=== PATIENT | female | born 1995 | race African-American/Black ===

== ENCOUNTER 2020-02-22 11:35 | Emergency (ER) | payer OTHER, SELFPAY ==
[2020-02-22 11:45] VITALS: BP 113/74; PULSE 87; RESP 16; TEMP 36.4; O2SAT 100
--- NOTE | 2020-02-22 12:00 | ED.FEMALEGU ---
HPI - Female Genitourinary General Chief complaint: Urogenital-Female Stated complaint: vaginal discharge Time Seen by Provider: 02/22/20 11:52 Source: patient and RN notes reviewed Mode of arrival: ambulatory Limitations: no limitations History of Present Illness HPI Narrative: Patient presents today complaining of vaginal discharge, internal and external itching and irritation. Irritation with urination. Describes the discharge is milky. Denies hematuria. Painful intercourse 4 to 5 days ago. Patient found out a few days ago that her boyfriend is cheating on her. MD elicited complaint: dysuria and vaginal discharge Related Data Allergies Allergy/AdvReac Type Severity Reaction Status Date / Time No Known Allergies Allergy Verified 02/22/20 11:41 Review of Systems Review of Systems: Narrative: CONSTITUTIONAL: Denies body aches, fever, chills, or sweats. EYES: Denies visual changes, redness, or discharge. ENT: Denies rhinorrhea, congestion, sore throat, or otalgia. CARDIOVASCULAR: Denies chest pain, palpitations, or edema. RESPIRATORY: Denies cough or dyspnea. GASTROINTESTINAL: Denies abdominal pain, nausea, vomiting, or diarrhea. GENITOURINARY: Denies hematuria.+ Dysuria, dyspareunia, vaginal discharge SKIN: Denies rash, itching, or wounds. MUSCULOSKELETAL: Denies back pain, joint pain, or myalgia. NEUROLOGIC: Denies headache, numbness, tingling, or weakness. PSYCH: Denies depression or anxiety. [facility] Family History Family History (Updated 04/04/16 @ 10:06 by DOCTOR UNKNOWN) Father Family history of seizure disorder Mother Family history of lupus erythematosus Social History Social History Smoking status: Never smoker Alcohol intake: current Gender identity (if verbalized by the patient): Female Comments At time of signature, I have reviewed and agree with nursing past medical, surgical, social and family history unless otherwise noted. Please see nursing chart for further information. There is no relevant family history pertinent to the presenting complaint Exam Narrative: Exam Narrative: GENERAL: Well-appearing, well-nourished, and in no acute distress. HEAD: Normocephalic, atraumatic. EYES: EOMI. No redness or drainage. Conjunctivae normal. ENT: Mucous membranes pink and moist. NECK: Normal AROM. CHEST: No respiratory distress. ABDOMEN: Soft, nontender, nondistended, normal active bowel sounds. : Normal external genitalia. Moderate thick, white, vaginal discharge. The cervix is mildly friable. The vaginal patel are erythematous. -CMT, -adnexal tenderness. MUSCULOSKELETAL: No bony tenderness. EXTREMITIES: Normal range of motion. No edema. SKIN: Warm, dry, no rash. Capillary refill normal. Normal skin turgor. NEURO: No focal deficits. Alert and oriented x3. Gait steady. PSYCH: Normal affect. No signs of depression or anxiety. Course Vital Signs Vital signs: Vital Signs Temperature 97.6 F 02/22/20 11:45 Pulse Rate 87 02/22/20 11:45 Respiratory Rate 16 02/22/20 11:45 Blood Pressure 113/74 02/22/20 11:45 Pulse Oximetry 100 02/22/20 11:45 Temperature 97.6 F 02/22/20 11:45 Pulse Rate 87 02/22/20 11:45 Respiratory Rate 16 02/22/20 11:45 Blood Pressure 113/74 02/22/20 11:45 Pulse Oximetry 100 02/22/20 11:45 Reviewed MDM - Female Genitourinary Differential Diagnosis Differential diagnosis: Likely urinary tract infection, bacterial vaginosis, trichomoniasis, cervicitis, vaginitis, cystitis and other (Gonorrhea, chlamydia) Lab Data Attestation: I reviewed the patient's lab results. Labs: Urine Glucose Negative Reference Range: Negative Urine Bilirubin 1+ Reference Range: Negative Urine Ketone Negative Reference Range: Negative Urine Specific [place] 1.030 Reference Range:1.001-1.035 Urine Blood Negativ
[2020-02-22] MEDS: cefTRIAXone 250 MG VIAL IM (12:05)
[2020-02-22] MEDS: LIDOCAINE HCL 1% LOCAL INJ 20 ML VIAL IM (12:05)
[2020-02-22] MEDS: AZITHROMYCIN 250 MG TABLET 1000 MG PO (12:05)
--- NOTE | 2020-02-22 12:20 | PC.NURSE ---
pelvic no cultures obtaianed
== END 2020-02-22 12:22 | disposition home or self-care (01) ==
PROVIDERS: Emergency Provider Nurse Practitioner; PCP Family Medicine
DX: N76.0 Acute vaginitis (principal)
CPT/HCPCS: 81003; 87491; 87591; 87661; 96372; 99214; A9270; G0463; J0696

== ENCOUNTER 2022-03-24 11:31 | Emergency (ER) | payer OTHER, SELFPAY ==
[2022-03-24 11:59] VITALS: BP 125/82; PULSE 85; RESP 12; TEMP 36.6; O2SAT 100
--- NOTE | 2022-03-24 12:02 | ED.GENADULT ---
HPI - General Adult General Chief complaint: Urogenital-Female Stated complaint: STD test History of Present Illness HPI narrative: 26 y/o AA female. PMHx Venereal Disease/Chlamydia. Presents to [facility] today with acute complaints of needs STD testing . The patient tells me that she has been notified by her significant other this AM, that another female he had sexual intercourse with may have been positive for an STD . She is unable to tell me the specific infection. Client reports to have had a mild degree of external vaginal itching and 'white' discharge 3 days ago. This has since cleared. She denies fever. No abdominal pain, N/V. No pelvic pain or pain w/intercourse. No vaginal lesions or pain. No additional acute c/o upon PE. Related Data Allergies Allergy/AdvReac Type Severity Reaction Status Date / Time No Known Allergies Allergy Verified 03/24/22 11:57 Review of Systems Review of Systems: CONSTITUTIONAL: Denies fever, chills, sweats. EYES: Denies visual changes, redness, discharge. ENT: Denies rhinorrhea, congestion, sore throat, otalgia. CARDIOVASCULAR: Denies chest pain, palpitations, edema. RESPIRATORY: Denies dyspnea, wheezing, cough GASTROINTESTINAL: Denies abdominal pain, nausea, vomiting, diarrhea. GENITOURINARY: Denies dysuria, hematuria. Questionable STD exposure + abnormal discharge. SKIN: Denies rash or itching. MUSCULOSKELETAL: Denies acute back pain, joint pain, or myalgia. NEUROLOGIC: Denies numbness, or focal weakness. PSYCHIATRIC: Denies anxiety or depression. [facility] Family History Family History Father Family history of seizure disorder Mother Family history of lupus erythematosus Social History Social History Smoking status: Never smoker Alcohol intake: current Gender identity (if verbalized by the patient): Female Exam Narrative: GENERAL: This is a well-nourished, well-developed adult, in no apparent distress. HEAD: normocephalic. EYES: Sclera clear/white. EARS: External ears normal. NOSE: External nose normal. THROAT: Mucous membranes moist. NECK: Neck supple. CARDIOVASCULAR: Regular rate and rhythm. RESPIRATORY: Clear to auscultation. GASTROINTESTINAL: Abdomen soft, non-tender, nondistended. Bowel sounds are active. No guarding. SKIN: warm, intact with no suspicious lesions or rash. NEURO: Alert, active, and age appropriate. Course Course Level of Care: Express Care Visit Vital Signs Vital signs: Vital Signs Temperature 36.6 C 03/24/22 11:59 Pulse Rate 85 03/24/22 11:59 Respiratory Rate 12 03/24/22 11:59 Blood Pressure 125/82 03/24/22 11:59 Pulse Oximetry 100 03/24/22 11:59 Oxygen Delivery Room Air 03/24/22 11:59 Temperature 36.6 C 03/24/22 11:59 Pulse Rate 85 03/24/22 11:59 Respiratory Rate 12 03/24/22 11:59 Blood Pressure 125/82 03/24/22 11:59 Pulse Oximetry 100 03/24/22 11:59 Oxygen Delivery Room Air 03/24/22 11:59 Medical Decision Making MDM Narrative Medical decision making narrative: -Questionable STD exposure. -Hx including Venereal disease/chlamydia. -She reports 'white' vaginal discharge, however cleared now. -No external lesions, pelvic pain, pain w/intercourse. -Urinalysis: negative. -HCG U: negative. -Additional send out GC/Chlamydia & Trichomonas have been sent for further analysis. -She has been covered w/State Medication STD regimen Azithromycin & IM Rocephin in clinic today. Will start PO Flagyl 500 BID X 7 days in AM, as this will cover for additional potential BV/Trichomonas. -Abstain from sexual encounters X 2 weeks post treatment. All sexual partners to be evaluated and treated accordingly with any positive returned STD reports. -Safe sex practices reviewed. -INSTALLER APPRENTICE F/U 1WK. Differential Diagnosis Differential Diagnosis: Differential Diagnosis: Co
[2022-03-24] MEDS: AZITHROMYCIN 250 MG TABLET 1000 MG PO (12:32)
[2022-03-24] MEDS: cefTRIAXone 1 GM, LIDOCAINE HCL 1% LOCAL INJ 2.1 ML IM (12:32)
== END 2022-03-24 13:02 | disposition home or self-care (01) ==
PROVIDERS: Emergency Provider Nurse Practitioner Adult Health
DX: L29.2 Pruritus vulvae (principal); Z20.2 Contact with and (suspected) exposure to infections with a predominantly sexual mode of transmission
CPT/HCPCS: 81003; 81025; 87491; 87591; 87661; 96372; 99214; A9270; G0463; J0696

== ENCOUNTER 2022-05-24 17:32 | Emergency (ER) | payer OTHER, SELFPAY ==
[2022-05-24 17:38] VITALS: BP 116/65; PULSE 89; RESP 16; TEMP 36.8; O2SAT 100
--- NOTE | 2022-05-24 18:13 | ED.FEMALEGU ---
HPI - Female Genitourinary General Chief complaint: TEACHER ASSOCIATE Stated complaint: currently and is bleeding Time Seen by Provider: 05/24/22 17:40 Source: patient Mode of arrival: ambulatory Limitations: no limitations History of Present Illness HPI Narrative: Abhishek is a 26-year-old female patient presenting to the clinic today with complaints of vaginal bleeding, lower abdominal cramping, and being 6 weeks and 3 days . She reports she has had a history of miscarriages before. She denies any fever or chills Related Data Allergies Allergy/AdvReac Type Severity Reaction Status Date / Time No Known Allergies Allergy Verified 03/24/22 11:57 Review of Systems Review of Systems: Pertinent positives per HPI. Patient denies any fever, chills, rash, headache, visual changes, dizziness, cough, runny nose, sore throat, shortness of breath, chest pain, palpitations, nausea, vomiting, diarrhea, constipation, or any urinary issues. PMFSH Family History Family History Father Family history of seizure disorder Mother Family history of lupus erythematosus Social History Social History Smoking status: Never smoker Alcohol intake: current Gender identity (if verbalized by the patient): Female Comments At the time of my signature, I reviewed and agree with the nursing past medical, surgical, social, and family history. There is no relevant family history pertinent to the patient complaint. Exam Narrative: General: Well-developed, well nourished, in no apparent distress. Head: Normocephalic, atraumatic. Cardio: Regular rate and rhythm, s1 and s2 normal, no murmur appreciated. Resp: Clear to auscultation bilaterally, no rhonchi, rales, wheezing or rubs. Abdomen: Soft, pliable, bowel sounds present in all quadrants, lower abdominal cramping, no organomegly, no CVAT tenderness. Course Course Emergency Course: Portions of this record may have been created with voice recognition software. Level of Care: Express Care Visit Vital Signs Vital signs: Vital Signs Temperature 36.8 C 05/24/22 17:38 Pulse Rate 89 05/24/22 17:38 Respiratory Rate 16 05/24/22 17:38 Blood Pressure 116/65 11/08/22 17:38 Pulse Oximetry 100 05/24/22 17:38 Oxygen Delivery Room Air 05/24/22 17:38 Temperature 36.8 C 05/24/22 17:38 Pulse Rate 89 05/24/22 17:38 Respiratory Rate 16 05/24/22 17:38 Blood Pressure 116/65 05/24/22 17:38 Pulse Oximetry 100 05/24/22 17:38 Oxygen Delivery Room Air 05/24/22 17:38 Vital signs reviewed Transfer Transfered to: [place] Transportation: Other (Private car) Transfer rationale: Threatened miscarriage Accepting physician: Dr. Esparza Transfer comments: Transfer via private car MDM - Female Genitourinary MDM Narrative Medical decision making narrative: At the time of visit patient is resting comfortably on exam table. I suspect patient may be having a threatened miscarriage. Recommend they patient be transferred to the ER for further evaluation. Contacted Dr. Esparza and he accepts patient in [place] emergency room. Differential Diagnosis Differential diagnosis: Likely other (Threatened miscarriage) Discharge Plan Discharge Clinical Impression: Vaginal bleeding in , Threatened miscarriage Patient Disposition: Acute Care Hospital Condition: Stable Instructions: Antibiotic Form Follow-up/Referrals: UNKNOWN,DOCTOR [Primary Care Provider] - Time of Disposition: 18:14 Quality NIHSS Nursing Documentation ED NIHSS nursing documentation: reviewed/agree
== END 2022-05-24 18:27 | disposition short-term general hospital (02) ==
PROVIDERS: Emergency Provider Nurse Practitioner Family
DX: O20.9 Hemorrhage in early pregnancy, unspecified (principal); O20.0 Threatened abortion; Z3A.01 Less than 8 weeks gestation of pregnancy
CPT/HCPCS: 99212; G0463

== ENCOUNTER 2022-05-24 18:33 | Emergency (ER) | payer OTHER, SELFPAY ==
--- NOTE | ~2022-05-24 | US_ITS ---
EXAMINATION: US OB <=14 wk fetus w TV INDICATION: VB in TECHNIQUE: Sonography of the pelvis was performed by transabdominal and transvaginal techniques. COMPARISON: None. RESULT: Uterus: Orientation: Anteverted and retroflexed. 8.5 x 4.8 x 4.7 cm. Myometrium: homogeneous echogen icity. Gestation: - Intrauterine gestational sac: Single present - Yolk sac: Present, not directly measured. - Embryo: Single present. - Torboy rump length: 0.60 cm, corresponding gestational age 6 weeks, 3 days. -Gestational heart rate: present 124 bpm. -Subgestational hematoma: Absent. Right ovary: 3.3 x 2.4 x 2.3 cm. Normal sonographic appearance. Left ovary: 2.0 x 1.7 x 3.2 cm. Normal sonographic appearance. Pelvis free fluid: Small volume free pelvic fluid. IMPRESSION: Single, live intrauterine gestation. Estimated Gestational Age: 6 weeks, 3 days by crown rump length. TIFFANI by ultrasound 01/14/2023. Reviewed, dictated and finalized at location [facility]. [employer] IMPRESSION: Single, live intrauterine gestation. Estimated Gestational Age: 6 weeks, 3 days by crown rump length. TIFFANI by ultras ound 01/14/2023.
[2022-05-24 18:34] VITALS: BP 133/83; PULSE 90; RESP 18; TEMP 36.8; O2SAT 100
[2022-05-24 18:56] LABS: Basophils Absolute Auto 0.1 K/mm3 (0.0-0.1); Basophils Percent Auto 0.7 % (0.2-1.2); Eosinophils Absolute Auto 0.1 K/mm3 (0-0.3); Eosinophils Percent Auto 1.4 % (0-4.4); Hematocrit 36.1 % (37.0-47.0); Hemoglobin 11.8 g/dL (12.0-15.0); Immature Granulocyte Absolute 0.02 K/mm3 (0.00-0.031); Immature Granulocyte Percent A 0.2 % (0-0.5); Lymphocytes Absolute Auto 3.54 K/mm3 (0.9-3.2); Lymphocytes Percent Auto 43.7 % (18.3-44.2); Mean Corpuscular HGB Conc 32.7 g/dl (32-36); Mean Corpuscular Hemoglobin 26.9 pg (26-34); Mean Corpuscular Volume 82.4 fl (80-100); Mean Platelet Volume 10.5 fl (7.4-10.4); Monocytes Absolute Auto 1.1 K/mm3 (0.1-0.6); Monocytes Percent Auto 14.1 % (2.6-8.5); Neutrophils Absolute Auto 3.2 K/mm3 (1.3-6.7); Neutrophils Percent Auto 39.9 % (45.5-73.1); Platelet Count Result 213 k/mm3 (150-375); Red Blood Count 4.38 M/mm3 (4.2-5.4); Red Cell Distribution Width 14.9 % (11.5-14.5); White Blood Count 8.1 K/mm3 (4.5-10.0)
[2022-05-24 19:45] LABS: Appearance Urine Slightly Cloudy (Clear); Bilirubin Urine 1+ (Negative); Blood Urine Trace-lysed (Negative); Color Urine Yellow (Yellow); Glucose Urine UA Negative (Negative); Ketones Urine Trace mg/dL (Negative); Leukocyte Esterase Ur Trace LEU/UL (Negative); Nitrate Urine Negative (Negative); Protein Urine 1+ mg/dL (Negative); Specific Grav Ur >= 1.030 (1.001-1.035); Urobilinogen Urine 0.2 mg/dL (<2.0)
[2022-05-24 20:04] LABS: Mucus Urine Heavy /lpf; Squamous Epithelial Cell Urine Many /hpf (Few)
[2022-05-24 20:13] LABS: Add Urine Microscopic? YES
--- NOTE | 2022-05-24 20:56 | ED.FEMALEGU ---
HPI - Female Genitourinary General Chief complaint: Vaginal Bleeding Stated complaint: bleeding and cramping-6wks Time Seen by Provider: 05/24/22 20:29 History of Present Illness HPI Narrative: Patient is a 26-year-old female who presents ER with vaginal spotting. Began today. No lower abdominal pain. She is approximately 6 weeks and 5 days gestation. She is a . LMP of April 10, 2022. No urinary frequency urgency or dysuria. Does not currently have an OB. Concerned about miscarriage as she has had them before. Patient does report some discharge is present in the last couple days. Related Data Allergies Allergy/AdvReac Type Severity Reaction Status Date / Time No Known Allergies Allergy Verified 03/24/22 11:57 Review of Systems Review of Systems: All systems reviewed & are unremarkable except as noted in HPI and below Constitutional: Constitutional: Denies chills and Denies fatigue Gastrointestinal: Gastrointestinal: Denies abdominal pain, Denies nausea and Denies vomiting Genitourinary: Genitourinary: Reports abnormal vaginal bleeding, Denies nocturia, Denies dysuria, Denies pelvic pain and Reports vaginal discharge PMFSH Past Medical History Medical History (Updated 05/25/22 @ 00:19 by Abhishek Mao MD) Anxiety and depression Polycystic ovarian syndrome Surgical History Surgical History (Updated 05/24/22 @ 20:57 by Abhishek Mao MD) No pertinent past surgical history Family History Family History Father Family history of seizure disorder Mother Family history of lupus erythematosus Social History Social History Smoking status: Never smoker Alcohol intake: current Gender identity (if verbalized by the patient): Female Exam Narrative: GENERAL: Well-appearing, well-nourished, and in no acute distress. HEAD: Normocephalic, atraumatic. NECK: Supple. CHEST: Clear to auscultation. No respiratory distress. HEART: Regular rate and rhythm. Normal peripheral pulses. ABDOMEN: Soft, nontender, nondistended. : Normal external genitalia. Speculum exam with no vaginal bleeding and mild amount of vaginal discharge. Cervix closed and nonfriable. EXTREMITIES: Normal range of motion. No edema. SKIN: Warm, dry, no rash. NEURO: Alert and oriented x3. PSYCH: Normal mood and affect. Course Course Emergency Course: Informed of results. Discussed treatment plan. Discharge home. Vital Signs Vital signs: Vital Signs Temperature 98.2 F 05/24/22 18:34 Pulse Rate 90 05/24/22 18:34 Respiratory Rate 18 05/24/22 18:34 Blood Pressure 133/83 05/24/22 18:34 Pulse Oximetry 100 05/24/22 18:34 Oxygen Delivery Room Air 05/24/22 18:34 Temperature 98.2 F 05/24/22 18:34 Pulse Rate 80 05/25/22 00:25 Respiratory Rate 16 05/25/22 00:25 Blood Pressure 121/79 05/25/22 00:25 Pulse Oximetry 100 05/25/22 00:25 Oxygen Delivery Room Air 05/24/22 18:34 MDM - Female Genitourinary Lab Data Result diagrams: 05/24/22 18:42 Labs: Lab Results 05/24/22 05/24/22 05/24/22 Range/Units 18:42 18:42 18:42 WBC 8.1 (4.5-10.0) K/mm3 RBC 4.38 (4.2-5.4) M/mm3 Hgb 11.8 L (12.0-15.0) g/dL Hct 36.1 L (37.0-47.0) % MCV 82.4 (80-100) fl MCH 26.9 (26-34) pg MCHC 32.7 (32-36) g/dl RDW 14.9 H (11.5-14.5) % Plt Count 213 (150-375) k/mm3 MPV 10.5 H (7.4-10.4) fl Immature Gran % (Auto) 0.2 (0-0.5) % Neut % (Auto) 39.9 L (45.5-73.1) % Lymph % (Auto) 43.7 (18.3-44.2) % [place] % (Auto) 14.1 H (2.6-8.5) % Eos % (Auto) 1.4 (0-4.4) % Baso % (Auto) 0.7 (0.2-1.2) % Lymph # (Auto) 3.54 H (0.9-3.2) K/mm3 [place] # (Auto) 1.1 H (0.1-0.6) K/mm3 Eos # (Auto) 0.1 (0-0.3) K/mm3 Baso # (Auto) 0.1 (0.0-0.1) K/mm3 Abs Immat Gran (auto) 0.02
[2022-05-25 00:25] VITALS: BP 121/79; PULSE 80; RESP 16; O2SAT 100
== END 2022-05-25 00:26 | disposition home or self-care (01) ==
PROVIDERS: Emergency Medicine; Emergency Provider Emergency Medicine
DX: O46.91 Antepartum hemorrhage, unspecified, first trimester (principal); Z3A.01 Less than 8 weeks gestation of pregnancy
CPT/HCPCS: 36415; 76801; 76817; 81001; 84702; 85025; 85461; 86850; 86900; 86901; 87070; 87077; 87086; 87186; 87491; 87591; 87808; 99284

== ENCOUNTER 2023-01-05 12:49 | Emergency (ER) | payer OTHER, SELFPAY ==
[2023-01-05 12:55] VITALS: BP 122/92; PULSE 90; RESP 20; TEMP 36.7; O2SAT 99
--- NOTE | 2023-01-05 12:56 | ED.DENTAL ---
HPI - Dental/Oral General Chief complaint: Dental/Oral Stated complaint: DENTAL PAIN/FACIAL SWELLING Time Seen by Provider: 01/05/23 12:56 Source: patient Mode of arrival: ambulatory History of Present Illness HPI Narrative: 27 y/o female presented for c/o left facial swelling worsening since yesterday. Reports pain with chewing and opening the mouth. Unable to determine if pain is upper or lower. Denies dental trauma or recently fractured teeth. Has taken Motrin for pain. Denies n/v/d/f/c. States she is unable to get in with her dentist today. Complaint: tooth pain Related Data Allergies Allergy/AdvReac Type Severity Reaction Status Date / Time No Known Allergies Allergy Verified 03/24/22 11:57 Review of Systems Review of Systems: CONSTITUTIONAL: Denies body aches, fever, chills ENT: Denies rhinorrhea, congestion, sore throat, or otalgia. Reports dental pain and facial swelling CARDIOVASCULAR: Denies chest pain, palpitations RESPIRATORY: Denies cough or dyspnea. SKIN: Denies rash, itching, or wounds. MUSCULOSKELETAL: Denies myalgia. NEUROLOGIC: Denies headache, numbness, tingling, or weakness. [facility] Past Medical History Medical History Anxiety and depression Polycystic ovarian syndrome Surgical History Surgical History No pertinent past surgical history Family History Family History Father Family history of seizure disorder Mother Family history of lupus erythematosus Social History Social History Smoking status: Never smoker Alcohol intake: current Gender identity (if verbalized by the patient): Female Comments At time of signature, I have reviewed and agree with nursing past medical, surgical, social and family history unless otherwise noted. Please see nursing chart for further information. There is no relevant family history pertinent to the presenting complaint Exam Narrative: GENERAL: Appears in pain; no acute distress. HEAD: Normocephalic, atraumatic. EYES: EOMI. No redness or drainage. Conjunctivae normal. ENT: Left cheek mild swelling. Dental pain location of #15 with palpation, mild surrounding erythema to gumline. Nontender to lower teeth. Left buccal mucosa with chen colored irregular raised skin lesion, mild tenderness, no active drainage. Mucous membranes pink and moist. TMs normal bilaterally. Throat normal. Uvula midline. NECK: Normal AROM. No lymphadenopathy. No induration below mandible, no neck pain. CHEST: No respiratory distress. Clear to auscultation. HEART: Regular rate and rhythm. No murmur appreciated. SKIN: Warm, dry, no rash. Normal skin turgor. NEURO: No focal deficits. Alert and oriented x3. Gait steady. HENMT: Teeth image: 1. Location of buccal mucosa lesion approx 0.5cm diameter Course Course Emergency Course: Patient is aware of diagnosis, understands and agrees to treatment plan. Anticipatory guidance given. Patient agrees to follow-up as directed and is aware of reasons to seek care at the emergency department. Portions of this record may have been created with voice recognition software Level of Care: Express Care Visit MDM - Dental/Oral MDM Narrative Medical decision making narrative: Patient presented with 2 days of left facial pain and swelling. Discussed physical exam findings with pt. Left upper dental tenderness with palpation, c/w dentalgia vs abscess. However patient is advised of the left buccal mucosa lesion, and the concern this could be causing the facial swelling. States the site is tender, but says the entire area is sore and unable to determine if it is causing much pain.Denies injury to the mouth such as biting the cheek when eating. She smokes marijuana several times daily. Will send abx fo
== END 2023-01-05 13:38 | disposition home or self-care (01) ==
PROVIDERS: Emergency Provider Nurse Practitioner Family
DX: R22.0 Localized swelling, mass and lump, head (principal); K13.70 Unspecified lesions of oral mucosa; E28.2 Polycystic ovarian syndrome
CPT/HCPCS: 99213; G0463

== ENCOUNTER 2023-07-05 00:18 | Emergency (ER) | payer OTHER, SELFPAY ==
--- NOTE | ~2023-07-05 | XR_ITS ---
Clinical Indication: Cough PA and lateral views of the chest: Comparison: 09/07/2011 Findings: The lungs are clear, without evidence of focal consolidation or pleural effusion. Cardiome diastinal silhouette is within normal limits. Bones and soft tissues are unremarkable. Impression: Normal chest. Reviewed, dictated and finalized at [facility]. [employer]NAGER Impression: Normal chest.
[2023-07-05 00:19] VITALS: BP 108/53; PULSE 96; RESP 20; TEMP 37.4; O2SAT 96
--- NOTE | 2023-07-05 00:52 | ED.GENADULT ---
HPI - General Adult General Chief complaint: Upper Respiratory Infection Stated complaint: I think I have pneumonia , SOB, aches/pain, chill Time Seen by Provider: 07/05/23 00:42 History of Present Illness HPI narrative: patient 27-year-old female presents emergency department with chief complaint flu-like symptoms. Patient reports since Monday she has had body aches generalized malaise cough runny nose and sore throat. Patient reports that she has pressure in her ears reports that the cough has been nonproductive the patient states that she tested for COVID at home that was negative Related Data Allergies Allergy/AdvReac Type Severity Reaction Status Date / Time No Known Allergies Allergy Verified 03/24/22 11:57 Review of Systems Review of Systems: A 10 system review of systems was completed on the patient and is negative except for what is stated in the HPI. Nursing and ancillary documentation was reviewed. PMFSH Past Medical History Medical History Anxiety and depression Polycystic ovarian syndrome Surgical History Surgical History No pertinent past surgical history Family History Family History Father Family history of seizure disorder Mother Family history of lupus erythematosus Social History Social History Smoking status: Never smoker Alcohol intake: current Gender identity (if verbalized by the patient): Female Exam Narrative: GENERAL: Well-appearing, well-nourished, and in no acute distress. HEAD: Normocephalic, atraumatic. EYES: PERRLA and EOMI. ENT: Nares clear, no rhinorrhea or epistaxis. Mucous membranes moist. NECK: Supple. CHEST: Clear to auscultation. No respiratory distress. HEART: Regular rate and rhythm. No murmur heard. Normal peripheral pulses. ABDOMEN: Soft, nontender, nondistended, normal active bowel sounds. EXTREMITIES: Normal range of motion. No edema. SKIN: Warm, dry, no rash. NEURO: No focal deficits. Alert and oriented x3. PSYCH: Normal mood and affect. Course Vital Signs Vital signs: Vital Signs Temperature 37.4 C 07/05/23 00:19 Pulse Rate 96 07/05/23 00:19 Respiratory Rate 20 07/05/23 00:19 Blood Pressure 108/53 L 07/05/23 00:19 Pulse Oximetry 96 07/05/23 00:19 Oxygen Delivery Room Air 07/05/23 00:19 Temperature 37.4 C 07/05/23 00:19 Pulse Rate 96 07/05/23 00:19 Respiratory Rate 20 07/05/23 00:19 Blood Pressure 108/53 L 07/05/23 00:19 Pulse Oximetry 96 07/05/23 00:19 Oxygen Delivery Room Air 07/05/23 00:19 Medical Decision Making MDM Narrative Medical decision making narrative: Differential diagnosis includes influenza, COVID, RSV, pneumonia chest x-ray showed no focal infiltrate COVID was negative influenza B was positive the patient is out of the window for Tamiflu will give a prescription for prednisone and also given a prescription for Tessalon Perles and albuterol inhaler. Vital Signs Vital Signs: Vital Signs Temperature 37.4 C 07/05/23 00:19 Pulse Rate 96 07/05/23 00:19 Respiratory Rate 20 07/05/23 00:19 Blood Pressure 108/53 L 07/05/23 00:19 Pulse Oximetry 96 07/05/23 00:19 Oxygen Delivery Room Air 07/05/23 00:19 Temperature 37.4 C 07/05/23 00:19 Pulse Rate 96 07/05/23 00:19 Respiratory Rate 20 07/05/23 00:19 Blood Pressure 108/53 L 07/05/23 00:19 Pulse Oximetry 96 07/05/23 00:19 Oxygen Delivery Room Air 07/05/23 00:19 Lab Data Labs: Lab Results 07/05/23 07/05/23 Range/Units 00:40 01:01 Influenza A (RT-PCR) Negative (Negative) Influenza B (RT-PCR) Positive A (Negative) RSV (RT-PCR) Negative (Negative) SARS-CoV-2 RNA (RT-PCR) Negative (Negative) Gr
[2023-07-05 01:20] LABS: Influenza A QL RT-PCR Negative (Negative); Influenza B QL RT-PCR Positive (Negative); RSV RNA, RT-PCR Negative (Negative); SARS-CoV-2 RNA PCR Negative (Negative)
[2023-07-05 01:30] LABS: Strep Group A RT-PCR NOT DETECTED (Negative)
[2023-07-05] MEDS: predniSONE 20 MG TABLET 60 MG PO (01:34)
[2023-07-05] MEDS: BENZONATATE 100 MG CAPSULE 200 MG PO (01:34)
[2023-07-05 02:04] VITALS: O2SAT 96
[2023-07-05 02:05] VITALS: BP 122/71; PULSE 72; RESP 15; TEMP 37.1; O2SAT 99
== END 2023-07-05 02:05 | disposition home or self-care (01) ==
PROVIDERS: Emergency Provider Emergency Medicine
DX: J10.1 Influenza due to other identified influenza virus with other respiratory manifestations (principal); Z20.822 Contact with and (suspected) exposure to COVID-19; E28.2 Polycystic ovarian syndrome
CPT/HCPCS: 71046; 87637; 87651; 99283; A9270; J7512

== ENCOUNTER 2023-07-13 20:41 | Emergency (ER) | payer OTHER, SELFPAY ==
--- NOTE | ~2023-07-13 | CT_ITS ---
EXAMINATION: CT abdomen pelvis w con DATE: 07/14/2023 02:29 INDICATION: Abdominal pain. Nausea and vomiting. Diarrhea. TECHNIQUE: Computed tomography (CT) of the abdomen and pelvis was performed with 100 mL Omnipaque 350 intravenous contrast. Automated exposure control and iterative reconstruction technique were employe d. The dose-length product was 907.84 mGy-cm. COMPARISON: CT abdomen and pelvis 12/29/2015 FINDINGS: The visualized portions of the lung bases demonstrate minimal atelectasis. No pleural effus ion. The heart size is normal. No pericardial effusion. The liver and spleen are normal. The gallblad walker is contracted. The pancreas, adrenal glands, and kidneys are normal. There are no dilated loops o f bowel. The appendix is normal. There are no pathologically enlarged lymph nodes. There is no free i ntraperitoneal fluid. There is mild lumbar spondylosis. IMPRESSION: 1. No etiology for the patient's symptoms. Reviewed, dictated and finalized at location A. ENGINEER
[2023-07-13 20:46] VITALS: BP 133/80; PULSE 75; RESP 18; TEMP 36.2; O2SAT 95
[2023-07-13 22:08] VITALS: BP 107/68; PULSE 71; RESP 18; O2SAT 100
[2023-07-13 23:44] VITALS: BP 141/91; PULSE 66; RESP 18; O2SAT 99
[2023-07-14] MEDS: SODIUM CHLORIDE 0.9% IV 1,000 ML 999 ML IV CONT ×2 (00:29→00:30)
[2023-07-14] MEDS: PROCHLORPERAZINE EDISYLATE 10 MG/2 ML VIAL IV PUSH (00:29)
[2023-07-14 00:53] LABS: Basophils Percent Auto 0.5 % (0.2-1.2); Eosinophils Absolute Auto 0.1 K/mm3 (0-0.3); Eosinophils Percent Auto 0.8 % (0-4.4); Hematocrit 39.6 % (37.0-47.0); Hemoglobin 12.3 g/dL (12.0-15.0); Immature Granulocyte Absolute 0.02 K/mm3 (0.00-0.031); Immature Granulocyte Percent A 0.3 % (0-0.5); Lymphocytes Absolute Auto 2.96 K/mm3 (0.9-3.2); Lymphocytes Percent Auto 40.2 % (18.3-44.2); Mean Corpuscular HGB Conc 31.1 g/dl (32-36); Mean Corpuscular Hemoglobin 25.4 pg (26-34); Mean Corpuscular Volume 81.6 fl (80-100); Mean Platelet Volume 11.1 fl (7.4-10.4); Monocytes Absolute Auto 0.9 K/mm3 (0.1-0.6); Monocytes Percent Auto 12.4 % (2.6-8.5); Neutrophils Absolute Auto 3.4 K/mm3 (1.3-6.7); Neutrophils Percent Auto 45.8 % (45.5-73.1); Platelet Count Result 270 k/mm3 (150-375); Red Blood Count 4.85 M/mm3 (4.2-5.4); Red Cell Distribution Width 14.6 % (11.5-14.5); White Blood Count 7.4 K/mm3 (4.5-10.0)
--- NOTE | 2023-07-14 00:59 | ED.GENADULT ---
HPI - General Adult General Chief complaint: Nausea/Vomiting/Diarrhea Stated complaint: vomiting, lightheaded, flu A+ a week ago Time Seen by Provider: 07/14/23 00:00 History of Present Illness HPI narrative: Patient is a 27-year-old female who presents emergency department chief complaint of nausea vomiting and abdominal pain. Patient reports that she was seen in emergency department approximately 1 week ago diagnosed with influenza treated with Tamiflu. Patient reports that she has been having nausea and vomiting unable to keep anything down and reports he has also had diarrhea and abdominal pain. Patient reports the pain is not improved by anything reports no blood in her stool or blood in her emesis reports that the symptoms are worsened with oral intake. Related Data Allergies Allergy/AdvReac Type Severity Reaction Status Date / Time No Known Allergies Allergy Verified 07/13/23 22:10 Review of Systems Review of Systems: A 10 system review of systems was completed on the patient and is negative except for what is stated in the HPI. Nursing and ancillary documentation was reviewed. [facility] Past Medical History Medical History Anxiety and depression Polycystic ovarian syndrome Surgical History Surgical History No pertinent past surgical history Family History Family History Father Family history of seizure disorder Mother Family history of lupus erythematosus Social History Social History Smoking status: Never smoker Alcohol intake: current Gender identity (if verbalized by the patient): Female Exam Narrative: GENERAL: Well-appearing, well-nourished, and in no acute distress. HEAD: Normocephalic, atraumatic. EYES: PERRLA and EOMI. ENT: Nares clear, no rhinorrhea or epistaxis. Mucous membranes moist. NECK: Supple. CHEST: Clear to auscultation. No respiratory distress. HEART: Regular rate and rhythm. No murmur heard. Normal peripheral pulses. ABDOMEN: Soft, diffusely tender to palpation, nondistended, normal active bowel sounds. EXTREMITIES: Normal range of motion. No edema. SKIN: Warm, dry, no rash. NEURO: No focal deficits. Alert and oriented x3. PSYCH: Normal mood and affect. Course Vital Signs Vital signs: Vital Signs Temperature 36.2 C L 07/13/23 20:46 Pulse Rate 75 07/13/23 20:46 Respiratory Rate 18 07/13/23 20:46 Blood Pressure 133/80 07/13/23 20:46 Pulse Oximetry 95 07/13/23 20:46 Oxygen Delivery Room Air 07/13/23 20:46 Temperature 36.2 C L 07/13/23 20:46 Pulse Rate 79 07/14/23 04:00 Respiratory Rate 18 07/14/23 04:00 Blood Pressure 125/81 07/14/23 04:00 Pulse Oximetry 100 07/14/23 04:00 Oxygen Delivery Room Air 07/13/23 20:46 Medical Decision Making [facility] Narrative Medical decision making narrative: Differential diagnosis includes intra-abdominal infection, UTI, pyelonephritis, dehydration Patient received IV fluids anti emetics is feeling much better at this time. Laboratory studies showed evidence of UTI CT scan showed no acute intra-abdominal pathology Vital Signs Vital Signs: Vital Signs Temperature 36.2 C L 07/13/23 20:46 Pulse Rate 75 07/13/23 20:46 Respiratory Rate 18 07/13/23 20:46 Blood Pressure 133/80 07/13/23 20:46 Pulse Oximetry 95 07/13/23 20:46 Oxygen Delivery Room Air 07/13/23 20:46 Temperature 36.2 C L 07/13/23 20:46 Pulse Rate 79 07/14/23 04:00 Respiratory Rate 18 07/14/23 04:00 Blood Pressure 125/81 07/14/23 04:00 Pulse Oximetry 100 07/14/23 04:00 Oxygen Delivery Room Air 07/13/23 20:46 Lab Data 07/13/23 22:20 07/13/23 22:20 Labs: Lab Results 07/13/23 07/13/2307/13
[2023-07-14 01:00] LABS: Appearance Urine Cloudy (Clear); Bacteria Urine 4+ /hpf; Bilirubin Urine Negative (Negative); Blood Urine Negative (Negative); Color Urine Yellow (Yellow); Glucose Urine UA Negative (Negative); Ketones Urine Negative (Negative); Leukocyte Esterase Ur 2+ LEU/UL (Negative); Nitrate Urine Negative (Negative); Non Pathogenic Casts 0-2; Protein Urine Trace mg/dL (Negative); RBC Urine 0-2 /hpf (0-2); Specific Grav Ur 1.021 (1.001-1.035); Squamous Epithelial Cell Urine None seen /hpf (Few); WBC Urine >100 /hpf; pH Urine 8.5 (5.0-9.0)
[2023-07-14 01:08] LABS: Add Urine Microscopic? YES
[2023-07-14 01:12] LABS: Lactic Acid Reflex 1.1 mmol/L (0.7-2.0)
[2023-07-14 02:09] LABS: Pregnancy On Board Control Positive; Urine Pregnancy Test Negative
[2023-07-14 02:10] LABS: Alanine Aminotransferase 17 U/L (6-35); Albumin Level 4.1 g/dL (3.5-5.1); Alkaline Phosphatase 52 U/L (38-126); Anion Gap 8 mmol/L (8-16); Aspartate Amino Transferase 21 U/L (14-36); Bilirubin,Total 0.4 mg/dL (0.2-1.3); Blood Urea Nitrogen 12 mg/dL (7-17); Calcium 9.1 mg/dL (8.4-10.2); Carbon Dioxide 26 mmol/L (22-30); Chloride 106 mmol/L (98-107); Estimated CRCL calculation 115 ml/min; Estimated Glomerular Filt Rate > 60; Glucose 108 mg/dL (65-110); Lipase 108 U/L (23-300); Sodium 140 mmol/L (137-145)
[2023-07-14 02:13] VITALS: BP 130/91; PULSE 67; RESP 18; O2SAT 99
[2023-07-14 04:00] VITALS: BP 125/81; PULSE 79; RESP 18; O2SAT 100
[2023-07-14 06:36] VITALS: BP 108/71; PULSE 62; O2SAT 100
== END 2023-07-14 06:33 | disposition home or self-care (01) ==
PROVIDERS: Emergency Provider Emergency Medicine
DX: N39.0 Urinary tract infection, site not specified (principal); R11.2 Nausea with vomiting, unspecified; R10.9 Unspecified abdominal pain; E28.2 Polycystic ovarian syndrome
CPT/HCPCS: 36415; 74177; 80053; 81001; 81025; 83605; 83690; 85025; 87077; 87086; 87088; 87186; 96361; 96374; 99284; J0780; J7030; Q9967

== ENCOUNTER 2024-08-21 17:16 | Emergency (ER) | payer OTHER, SELFPAY ==
--- NOTE | 2024-08-21 17:18 | ED_ITS ---
HPI - URI/Sore Throat General Chief Complaint: Upper Respiratory Infection Stated Complaint: SORE THROAT/SOB/COUGH/VOMITING/CHILLS/SWEATS Time Seen by Provider: 08/21/24 17:18 Source: patient Mode of arrival: ambulatory Limitations: no limitations History of Present Illness HPI Narrative: Patient is a 28-year-old female who presents with vomiting and chills for 2 days. Patient also had some nonproductive cough, sore throat and runny nose. Denies any fever, ear pain, diarrhea. Has taken [id number] medication the relief. Related Data Home Medications ?Medication ?Instructions ?Recorded ?Confirmed ?Last Taken ?Type fluoxetine 40 mg capsule 40 mg PO QPM 08/21/24 08/21/24 Unknown History hydroxyzine HCl 25 mg tablet 25 mg PO DAILY 08/21/24 08/21/24 Unknown History phentermine 30 mg capsule 30 mg PO DAILY 08/21/24 08/21/24 Unknown History propranolol 10 mg tablet 10 mg PO DAILY 08/21/24 08/21/24 Unknown History quetiapine 50 mg tablet 50 mg PO DAILY 08/21/24 08/21/24 Unknown History Allergies Allergy/AdvReac Type Severity Reaction Status Date / Time No Known Allergies Allergy Verified 08/21/24 17:24 Review of Systems Review of Systems: All systems reviewed & are unremarkable except as noted in HPI and below Constitutional: Constitutional: Denies body ache(s), Reports chills, Denies fatigue, Denies fever(s), Denies headache(s), Denies malaise and Denies weakness Eyes: Eyes: Denies blurry vision, Denies itchy eyes and Denies loss of vision ENT: Denies otalgia, Denies headache(s), Reports nasal congestion, Denies sinus pain and Reports sore throat Cardiovascular: Cardiovascular: Denies chest pain, Denies irregular heart rhythm and Denies dyspnea Respiratory: Respiratory: Reports cough and Denies dyspnea Gastrointestinal: Gastrointestinal: Denies abdominal pain, Denies diarrhea, Denies nausea and Reports vomiting Musculoskeletal: Musculoskeletal: Denies back pain, Denies myalgias and Denies arthralgias Integumentary/Breasts: Skin/Breast: Denies pruritus and Denies rash Neurologic: Denies headache(s), Denies loss of vision and Denies weakness Psychiatric: Psychiatric: Reports no additional psychiatric complaints Endocrine: Endocrine: Denies fatigue Allergic/Immunologic: Allergic/Immunologic: Denies itchy eyes PMFSH Past Medical History Medical History Polycystic ovarian syndrome Anxiety and depression Surgical History Surgical History No pertinent past surgical history Family History Family History Father Family history of seizure disorder Mother Family history of lupus erythematosus Social History Social History Smoking status: Never smoker Alcohol intake: current Gender identity (if verbalized by the patient): Female Comments At time of signature, agree with nursing past medical, surgical, social and family history. There is no relevant family history pertinent to the presenting complaint. Exam Const: General: cooperative, healthy appearing, comfortable, no acute distress and well nourished Nutritional Appearance: well nourished Orientation/ consciousness: patient oriented x3 Limitations: no limitations HENMT: Head: normal to inspection, normocephalic and atraumatic Ears: hearing grossly normal bilaterally, external ears normal, TM's normal bilaterally, EAC's normal and no periauricular adenopathy Face/Nose/Sinus: Normal external nose present, Abnormal mucous membranes and turbinates present erythematous bilateral and diffuse, normal facial exam, sinuses nontender and face symmetric Face and sinus: normal facial exam, sinuses nontender and face symmetric Mouth: Yes Normal oral and palatal mucosa present, Yes lip normal, Yes tongue normal, Yes Normal salivary glands and ducts present, Yes oropharynx normal and Yes moist mucous membranes Teeth and gingiva: dentition normal Throat: posterior oropharynx normal, tonsils normal and uvula midline Eyes: General: appearance normal, both eyes and all related structures Alignment and Position: alignment normal and position normal Periorbital: periorbital findings normal Eyelids: eyelids normal Pupils: Equal, round and reactive pupils present Neck: Neck: normal visual inspection, full ROM, no lymphadenopathy and supple Chest: Chest palpation & inspection: normal inspection of the chest and normal palpation of entire chest wall Resp: Effort & Inspection: normal respiratory effort and able to speak in complete sentences Auscultation: clear to auscultation bilaterally, no c rackles, no rales, no rhonchi and no wheezes Cardio: Rate: regular rate Rhythm: regular rhythm Heart sounds: S1 normal heart sound present and S2 normal heart sound present GI: Inspection: normal to inspection Skin: General skin exam: normal color and no rashes or lesions noted Neuro: General: patient oriented x3 and moves all extremities Cranial nerves: Yes Equal, round and reactive pupils present Speech: normal speech Gait exam (Neuro): Normal gait present Extrem: General: normal to inspection, full ROM and no edema Psych: Appearance: grossly normal and well kempt Mental Status: mental status grossly normal Speech and movement: Normal speech and movement present Affect: normal affect Attitude: cooperative Thought process: Normal thought process present Course Course Emergency Course: Discharge instructions reviewed with patient, as well as provided in writing per nursing staff. The instructions also include specific and strict return/GO TO THE ER as well as f/u information. All questions have been answered, and the patient deny any further questions with discharge and discharge plan. Portions of this record may have been created with voice recognition software Level of Care: Express Care Visit Vital Signs Vital signs: Vital Signs Temperature 36.6 C 08/21/24 17:32 Pulse Rate 89 08/21/24 17:32 Respiratory Rate 16 08/21/24 17:32 Blood Pressure 121/83 08/21/24 17:32 Pulse Oximetry 100 08/21/24 17:32 Temperature 36.6 C 08/21/24 17:32 Pulse Rate 89 08/21/24 17:32 Respiratory Rate 16 08/21/24 17:32 Blood Pressure 121/83 08/21/24 17:32 Pulse Oximetry 100 08/21/24 17:32 Reviewed MDM - URI/Sore Throat MDM Narrative Medical decision making narrative: Pt well hydrated appearing, in no respiratory distress, hemodynamically stable. Recommend supportive care. The patient is stable at time of discharge the clinical impression was discussed and the patient was given the opportunity to ask questions, which were addressed as completely as possible given the infor mation available at present. Anticipatory guidance and return to care precautions were discussed and the importance of primary care follow-up was stressed and encouraged. The patient voiced understanding of the plan, indications to return, and the need for follow-up. Differential diagnosis considered: Arellano virus, strep pharyngitis, allergic rhinitis, upper respiratory tract infection, sinusitis, rhinosinusitis, nasopharyngitis. viral pharyngitis, otitis media, otitis externa, otitis effusion, foreign body, cerumen impaction, viral syndrome, and influenza.? Exam findings show no acute concerns or changes; patient is non-toxic appearing and is in no distress.? Patient is appropriate for outpatient treatment and follow- up.? Medical Records Attestation: I reviewed the patient's medical records. Lab Data Attestation: I reviewed the patient's lab results. Labs: Lab Results 08/21/24 08/21/24 Range/Units 17:38 17:44 POC Influenza A Ag Negative (Negative) POC Influenza B Ag Negative (Negative) POC SARS CoV-2 Ag Negative (Negative) POC Grp A Strep Screen Negative (Negative) Discharge Plan Discharge Clinical Impression: Upper respiratory infection Qualifiers: URI type: acute nasopharyngitis (common cold) Qualified Code(s): J00 - Acute nasopharyngitis [common cold] Patient Disposition: Home, Self-Care Condition: Stable Instructions: Upper Respiratory Infection (ED) Additional Instructions: Your rapid strep swab was negative today at [facility]. A throat culture will be sent to the laboratory for further testing. If the test is positive, you will receive a phone call within 48 hours and an appropriate antibiotic will be initiated at that time. Your Covid and flu are both negative Your symptoms are likely due to a viral illness, which is not treated with antibiotics. Viral symptoms can be present for up to a few weeks. -Alternate Tylenol and Motrin per package directions for fever or pain. -Antihistamine medication such as Benadryl/Zyrtec at night and Claritin/Leslie during the day can help improve symptoms. -Use Flonase twice a day for 5 days then daily to help reduce the inflammation and dry up your sinuses. -You can also use Sudafed behind the pharmacy counter(12 or 24 hour). Be sure to drink plenty of water with these medications at least 8 ounces with every dose and it is important to drink 8 to 10 glasses of water per day. Water is a natural decongestant -Eat and drink things that are easy to swallow, like tea or soup, or popsicles. -Oral rinses such as: Salt water gargles and/or may use topical anesthetic (eg. Chloraseptic spray) or lozenges to relieve dryness or throat pain). -Frequent hand washing or hand fire prevention forester is one of the best ways to prevent spread of infection. -Using a vaporizer or humidifier at night will also help thin secretions and help with coughing up phlegm. -Follow up with primary care provider in 3-5 days if condition is not improving - For new or worsening symptoms go directly to the nearest ER Patient Language: [place] Prescriptions: No Action hydroxyzine HCl 25 mg tablet 25 mg PO DAILY fluoxetine 40 mg capsule 40 mg PO QPM propranolol 10 mg tablet 10 mg PO DAILY quetiapine 50 mg tablet 50 mg PO DAILY phentermine 30 mg capsule 30 mg PO DAILY albuterol sulfate 90 mcg/actuation HFA aerosol inhaler 2 puff inhalation QID PRN (Reason: shortness of breath or wheezing) Qty: 8.5 0RF Follow-up/Referrals: Nabil Johnson MD [Physician] - 3 Days (Establish care) UNKNOWN,DOCTOR [Non-Staff] - Time of Disposition: 17:52
[2024-08-21 17:32] VITALS: BP 121/83; PULSE 89; RESP 16; TEMP 36.6; O2SAT 100
[2024-08-21 17:40] LABS: EDSTREPNEGPOS1 Negative (Negative)
[2024-08-21 17:45] LABS: EDCOVIDSCREEN Negative (Negative); EDINFLUASCREEN Negative (Negative); EDINFLUBSCREEN Negative (Negative)
== END 2024-08-21 17:54 | disposition home or self-care (01) ==
PROVIDERS: Emergency Provider Nurse Practitioner Family
DX: J00 Acute nasopharyngitis [common cold] (principal); Z79.899 Other long term (current) drug therapy; Z20.822 Contact with and (suspected) exposure to COVID-19
CPT/HCPCS: 87081; 87426; 87804; 87880; 99213; G0463

== ENCOUNTER 2025-03-06 10:57 | Emergency (ER) | payer SELFPAY ==
[2025-03-06 11:13] VITALS: BP 124/87; PULSE 103; RESP 18; TEMP 36.6; O2SAT 98
[2025-03-06 11:28] LABS: EDCOVIDSCREEN Negative (Negative); EDINFLUASCREEN Negative (Negative); EDINFLUBSCREEN Negative (Negative); EDSTREPNEGPOS1 Positive (Negative)
--- NOTE | 2025-03-06 11:57 | ED.URI ---
HPI - URI/Sore Throat General Chief Complaint: Upper Respiratory Infection Stated Complaint: Sore Throat/Chills Time Seen by Provider: 03/06/25 11:27 Source: patient and RN notes reviewed Mode of arrival: ambulatory Limitations: no limitations History of Present Illness HPI Narrative: Patient presents today with a 2 day history of headache, sore throat, sweats and chills, vomiting, and decreased appetite. She has tried some as well as hot tea without much improvement and currently rates her pain 7/10. Denies any known sick contact Related Data Home Medications ?Medication ?Instructions ?Recorded ?Confirmed ?Last Taken ?Type fluoxetine 40 mg capsule 40 mg PO QPM 08/21/24 03/06/25 Unknown History hydroxyzine HCl 25 mg tablet 25 mg PO DAILY 08/21/24 03/06/25 Unknown History phentermine 30 mg capsule 30 mg PO DAILY 08/21/24 08/21/24 Unknown History propranolol 10 mg tablet 10 mg PO DAILY 08/21/24 03/06/25 Unknown History quetiapine 50 mg tablet 50 mg PO DAILY 08/21/24 08/21/24 Unknown History Allergies Allergy/AdvReac Type Severity Reaction Status Date / Time No Known Allergies Allergy Verified 03/06/25 11:08 [facility] Past Medical History Medical History Polycystic ovarian syndrome Anxiety and depression Surgical History Surgical History No pertinent past surgical history Family History Family History Father Family history of seizure disorder Mother Family history of lupus erythematosus Social History Social History Smoking status: Never smoker Alcohol intake: current Gender identity (if verbalized by the patient): Female Comments At time of signature, I have reviewed and agree with nursing past medical, surgical, social and family history unless otherwise noted. Please see nursing chart for further information. There is no relevant family history pertinent to the presenting complaint Exam Narrative: GENERAL: Well-appearing, well-nourished, and in no acute distress. HEAD: Normocephalic, atraumatic. EYES: EOMI. No redness or drainage. Conjunctivae normal. ENT: Mucous membranes pink and moist. Nares clear. No rhinorrhea. TMs normal bilaterally. Throat erythematous and mildly edematous. Tonsils 3+ without exudate. Uvula midline. NECK: Normal AROM. Supple. Bilateral anterior cervical chain lymphadenopathy. CHEST: No respiratory distress. Clear to auscultation. HEART: Regular rate and rhythm. No murmur appreciated. EXTREMITIES: Normal range of motion. No edema. SKIN: Warm, dry, no rash. Capillary refill normal. Normal skin turgor. NEURO: No focal deficits. Alert and oriented x3. Gait steady. PSYCH: Normal affect. No signs of depression or anxiety. Course Course Level of Care: Express Care Visit Vital Signs Vital signs: Vital Signs Temperature 98 F 03/06/25 11:13 Pulse Rate 103 H 03/06/25 11:13 Respiratory Rate 18 03/06/25 11:13 Blood Pressure 124/87 03/06/25 11:13 Pulse Oximetry 98 03/06/25 11:13 Temperature 98 F 03/06/25 11:13 Pulse Rate 103 H 03/06/25 11:13 Respiratory Rate 18 03/06/25 11:13 Blood Pressure 124/87 03/06/25 11:13 Pulse Oximetry 98 03/06/25 11:13 Reviewed MDM - URI/Sore Throat MDM Narrative Medical decision making narrative: 29 year female presents 2 day history of headache, sore, vomiting, sweats chills, decreased appetite. OTC medication without much improvement. Upon exam, patient an erythematous and swollen throat. COVID and influenza testing negative. Rapid strep positive. Prescription for amoxicillin sent to pharmacy. Vital signs stable. Patient agrees with plan. Anticipatory guidance given. Differential Diagnosis Differential diagnosis: Likely upper respiratory infection, otitis media, viral infection, influenza, pharyngitis and other (Strep throat, COVID) Lab Data Attestation: I reviewed the patient's lab results. Labs: Lab Results 03/06/25 Range/Units 11:26 POC Influenza A Ag Negative (Negative) POC Influenza B Ag Negative (Negative) POC SARS CoV-2 Ag Negative (Negative) POC Grp A Strep Screen Positive (Negative) Critical Care Time Critical Care Time Critical Care Time: No Discharge Plan Discharge Clinical Impression: Strep throat Patient Disposition: Home Condition: Stable Instructions: Antibiotic Form, Strep Throat (DC) Additional Instructions: You have tested positive for strep throat. Your COVID and influenza swabs were negative today. Please take the amoxicillin as prescribed until gone. You will be contagious for 24 hours after starting the medication. Take Tylenol or Ibuprofen for pain or fever, if able. Rest and stay hydrated. Follow up with your PCP in 3 days if symptoms are not improving. Go to the ER immediately if you develop worsening symptoms such as shortness of breath, difficulty swallowing. Your blood pressure was elevated above 120/80 today at Urgent Care. This puts you above the threshold for follow up. Please schedule a followup visit with your personal physician as soon as possible, for further evaluation and treatment. Even blood pressure exceeding 120/80 may indicate pre-hypertension. Patient Language: Pakistani Prescriptions: New amoxicillin 875 mg tablet 875 mg PO Q12H 10 Days Qty: 20 0RF No Action hydroxyzine HCl 25 mg tablet 25 mg PO DAILY fluoxetine 40 mg capsule 40 mg PO QPM propranolol 10 mg tablet 10 mg PO DAILY quetiapine 50 mg tablet 50 mg PO DAILY phentermine 30 mg capsule 30 mg PO DAILY Follow-up/Referrals: PHYSICIAN,FLOOR MOLDER [Primary Care Provider, Internal Medicine] Time of Disposition: 11:51
== END 2025-03-06 11:57 | disposition home or self-care (01) ==
PROVIDERS: Emergency Provider Nurse Practitioner
DX: J02.0 Streptococcal pharyngitis (principal); Z20.822 Contact with and (suspected) exposure to COVID-19; E28.2 Polycystic ovarian syndrome; F41.9 Anxiety disorder, unspecified; F32.A Depression, unspecified
CPT/HCPCS: 87426; 87804; 87880; 99213; G0463